=== PATIENT | female | born 1970 | race African-American/Black ===

== ENCOUNTER 2017-10-25 14:43 | Emergency (ER) | payer MEDICAID, MEDICARE ==
[~2017-10-25] VITALS: Ht 160 cm; Wt 136.1 kg
[~2017-10-25 14:43] MED LIST: CIPR500T4 PO; DIT5 PO; IBUP-974 PO; IRON65TA PO; MEDR10TA PO; VIC PO
[2017-10-25 14:46] VITALS: BP 149/96
--- NOTE | 2017-10-25 15:53 | NUR ---
PT TAKEN TO OVERFLOW 4.
--- NOTE | 2017-10-25 16:00 | NUR ---
46M bib daughter with c/o fevers, bodyaches, and 6/10 "pressure" constant frontal heachache x last night. No nachal rigidity or changes in vision. Pt denies any n/v or cough. Pt also report of nausea and frequency. Pt is aox4, with steady gait. RR are even and unlabored. NAD. Awaiting er md primary eval. Will continue to monitor.
--- NOTE | 2017-10-25 16:00 | NUR ---
46M bib daughter with c/o fevers, bodyaches, and 6/10 "pressure" constant frontal heachache x last night. No nachal rigidity or changes in vision. Pt also report of nausea and frequency. Pt is aox4, with steady gait. RR are even and unlabored. NAD. Awaiting er md primary eval. Will continue to monitor.
--- NOTE | 2017-10-25 16:04 | NUR ---
ER MD COLLAZO BY BEDSIDE
[2017-10-25] MEDS ORDERED: PANTOPRAZOLE 40 MG INJ VIAL IVP ONE (16:10)
[2017-10-25] MEDS ORDERED: KETOROLAC 30 MG/ML VIAL IVP ONE (16:10)
[2017-10-25] MEDS ORDERED: NACL 0.9% 1,000 ML IV ONE (16:10)
[2017-10-25] MEDS ORDERED: ONDANSETRON 4 MG/2 ML VIAL IVP ONE (16:20)
[2017-10-25 16:50] LABS: APPEARANCE,URINE CLEAR (CLEAR); BILIRUBIN,URINE NEGATIVE (NEGATIVE); BLOOD, URINE 1+ (NEGATIVE); COLOR,URINE YELLOW (YELLOW); LEUKOCYTE ESTERASE ,URINE 1+ (NEGATIVE); NITRITE, URINE NEGATIVE (NEGATIVE); PH,URINE 5.5 (5.0-9.0); UGLUCOSE NEGATIVE (NEGATIVE)
[2017-10-25 17:04] LABS: RBC,URINE 0-5 (RARE) /HPF (0-5); WBC,URINE 0-5 (RARE) /HPF (0-5)
[2017-10-25] MEDS ORDERED: METOCLOPRAMIDE 10 MG/2 ML INJ VIAL IVP ONE (17:40)
--- NOTE | 2017-10-25 18:00 | NUR ---
patient with no complaints. nad. will continue to monitor.
--- NOTE | 2017-10-25 18:44 | NUR ---
Patient discharged with v/s stable. Written and verbal after care instructions given and explained. Patient alert, oriented and verbalized understanding of instructions. Ambulatory with steady gait. All questions addressed prior to discharge. ID band removed. Patient advised to follow up with PMD. Rx of Bactrim and Zofran given. Patient educated on indication of medication including possible reaction and side effects. Opportunity to ask questions provided and answered.
[2017-10-25 18:45] VITALS: BP 141/88
== END 2017-10-25 18:44 | disposition home or self-care (01) ==
LOC: MED 14:43
DX: N39.0 Urinary tract infection, site not specified (principal); I10 Essential (primary) hypertension; Z88.1 Allergy status to other antibiotic agents
CPT/HCPCS: 36415; 81001; 81025; 87086; 87804; 96361; 96374; 96375; 99285; C9113; J1885; J2405; J2765; J7030

== ENCOUNTER 2017-12-09 16:26 | Emergency (ER) | payer MEDICARE ==
[~2017-12-09] VITALS: Ht 160 cm; Wt 127.0 kg
[2017-12-09 16:31] VITALS: BP 148/79
--- NOTE | 2017-12-09 16:48 | NUR ---
ASSUMED PATIENT CARE, CONCUR WITH TRIAGE. NURSING ASSESSMENT COMPLETED. SEEN AND EVALUATED BY PROVIDER, MSE COMPLETED.
--- NOTE | 2017-12-09 17:07 | NUR ---
URINE SPECIMEN COLLECTED AND SENT TO LAB.
[2017-12-09 17:28] LABS: APPEARANCE,URINE CLEAR (CLEAR); BILIRUBIN,URINE NEGATIVE (NEGATIVE); BLOOD, URINE NEGATIVE (NEGATIVE); COLOR,URINE YELLOW (YELLOW); LEUKOCYTE ESTERASE ,URINE NEGATIVE (NEGATIVE); NITRITE, URINE NEGATIVE (NEGATIVE); UGLUCOSE 3+ (NEGATIVE)
[2017-12-09 17:31] LABS: RBC,URINE 0-5 (RARE) /HPF (0-5); WBC,URINE 0-5 (RARE) /HPF (0-5)
[2017-12-09 18:30] VITALS: BP 122/77
--- NOTE | 2017-12-09 18:30 | NUR ---
MD AT BEDSIDE, UPDATING PATIENT.
--- NOTE | 2017-12-09 18:49 | NUR ---
DISPO AND MEDICAL DECISION MAKING, DC HOME WITH INSTRUCTIONS AND PRESCRIPTIONS, UNDERSTOOD BY PATIENT WELL, VSWNL, NO DISTRESS.
== END 2017-12-09 18:49 | disposition home or self-care (01) ==
LOC: MED 16:26
DX: B37.3 Candidiasis of vulva and vagina (principal); I10 Essential (primary) hypertension; Z88.1 Allergy status to other antibiotic agents
CPT/HCPCS: 81001; 99283

== ENCOUNTER 2018-01-01 08:42 | Emergency (ER) | payer MEDICARE ==
[~2018-01-01] VITALS: Ht 160 cm; Wt 126.1 kg
[2018-01-01 08:47] VITALS: BP 149/83
--- NOTE | 2018-01-01 08:55 | NUR ---
UA specimen collected. Pt sent to lobby to wait for a bed.
--- NOTE | 2018-01-01 10:02 | NUR ---
Pt taken to bed 10.
--- NOTE | 2018-01-01 10:03 | NUR ---
47/F BIB DAUGHTER C/O urge incontinence x1 week; sent from urgent care for eval of UTI s/sx and BS of 547. hx ovarian cyst. DENIES N/V/D; SKIN IS PINK/WARM/DRY; AAOX4 WITH EVEN AND STEADY GAIT; LUNGS CLEAR BL. PATIENT STATES PAIN OF 6/10 AT THIS TIME. PATIENT POSITIONED FOR COMFORT; HOB ELEVATED; BEDRAILS UP X2; BED DOWN. ER MD MADE AWARE OF PT STATUS.
[2018-01-01] MEDS ORDERED: NACL 0.9% 1,000 ML IV ONE (10:05)
--- NOTE | 2018-01-01 11:18 | NUR ---
Patient being reevaluated by DR GIBBS at bedside
[2018-01-01] MEDS ORDERED: INSULIN REGULAR, HUMAN 100 UNIT/ML VIAL IV ONE (11:20)
[2018-01-01 12:08] VITALS: BP 132/79
--- NOTE | 2018-01-01 12:09 | NUR ---
Patient discharged with BP 132/79; DENIES YEE OR DIZINESS AT THIS TIME. Written and verbal after care instructions given and explained. Patient alert, oriented and verbalized understanding of instructions. Ambulatory with steady gait. All questions addressed prior to discharge. ID band removed. Patient advised to follow up with PMD. Rx of MOTRIN & ANUSOL given. Patient educated on indication of medication including possible reaction and side effects. Opportunity to ask questions provided and answered.
== END 2018-01-01 12:09 | disposition home or self-care (01) ==
LOC: MED 08:42
DX: K64.9 Unspecified hemorrhoids (principal); E11.9 Type 2 diabetes mellitus without complications; Z88.1 Allergy status to other antibiotic agents; I10 Essential (primary) hypertension; F12.10 Cannabis abuse, uncomplicated
CPT/HCPCS: 82948; 96361; 96374; 99284; J1815; J7030; 81002; 81025

== ENCOUNTER 2018-10-10 22:37 | Emergency (ER) | payer MEDICARE ==
[~2018-10-10] VITALS: Ht 160 cm; Wt 117.5 kg
[2018-10-10 22:40] VITALS: BP 175/89
--- NOTE | 2018-10-10 22:49 | NUR ---
Pt MARCO flores. Pt presents to ED with ALOC after ingesting Marijuana Cake at home at 20:00. Pt states SOB 2 hrs after. Pt is alert to name, place, and event. Slurring words. Calm and cooperative. Eyes PERRLA. No sob or dyspnea upon ED arrival. Lungs clear bilat throughout. VSS. ER MD aware. continue to monitor.
--- NOTE | 2018-10-10 22:49 | NUR ---
PT TAKEN TO BED 3
[2018-10-10] MEDS ORDERED: NACL 0.9% 1,000 ML IV ONE (22:50)
[2018-10-10 23:24] LABS: BASOPHILS % (AUTO) 0.2 % (0.0-2.0); EOSINOPHILS % (AUTO) 0.2 % (0.0-4.0); HEMATOCRIT 42.7 % (36-48); HEMOGLOBIN 14.2 g/dL (12.0-16.0); LYMPHOCYTES # (AUTO) 1.8 K/uL (2.5-16.5); LYMPHOCYTES % (AUTO) 30.3 % (20.5-51.1); MEAN CORPUSCULAR HEMOGLOBIN 28 pg (27-31); MEAN CORPUSCULAR HGB CONC 33 g/dL (33-37); MEAN CORPUSCULAR VOLUME 82.8 fL (80-94); MONOCYTES # (AUTO) 0.5 K/uL (0.8-1.0); MONOCYTES % (AUTO) 7.5 % (1.7-9.3); NEUTROPHILS # (AUTO) 3.7 K/uL (1.8-7.7); NEUTROPHILS % (AUTO) 61.8 % (42.2-75.2); PLATELET COUNT (AUTO) 252 K/uL (140-450); RED BLOOD CELL COUNT(AUTO) 5.16 MIL/uL (4.20-5.40); RED CELL DISTRIBUTION WIDTH 12.9 % (11.6-13.7)
[2018-10-10 23:36] LABS: BARBITURATE, URINE NEG. ng/ml (NEG <=200); BENZODIAZEPINE, URINE NEG. ng/mL (NEG <=200); CANNABINOID, URINE POS. ng/mL (NEG <=50); COCAINE, URINE NEG. ng/mL (NEG <=300); OPIATE, URINE NEG. ng/mL (NEG <=2000); PHENCYCLIDINE SCREEN,URINE NEG. ng/mL (NEG <=25)
[2018-10-10 23:44] LABS: ALBUMIN 3.8 g/dL (3.4-5.0); ANION GAP 11.5 (8-16); ASPARTATE AMINOTRANSFERASE 23 U/L (15-37); CARBON DIOXIDE 31.8 mmol/L (21-32); CHLORIDE 94 mmol/L (98-107); CREATININE 1.1 mg/dL (0.6-1.3); GFR ARICAN-AMERICAN 68 mL/min (>90); POTASSIUM 4.3 mmol/L (3.5-5.1); SODIUM SERUM 133 mmol/L (136-145); TOTAL BILIRUBIN 0.4 mg/dL (0.0-1.0)
--- NOTE | 2018-10-10 23:48 | NUR ---
BEDPAN PROVIDED/ASSISTED ONTO BEDPAN, PER PT REQUEST.
--- NOTE | 2018-10-10 23:56 | NUR ---
ASSISTED PT OFF OF BEDPAN, PT RESTING COMFORTABLY.
[2018-10-10 23:57] LABS: SALICYLATE < 2.8 mg/dL (2.8-20.0)
[2018-10-10 23:58] LABS: ACETAMINOPHEN < 0.5 ug/ml (10-30); UREA NITROGEN, BLOOD 11 mg/dL (7-18)
[2018-10-11] LABS: GLUCOSE 513 mg/dL (74-106)
[2018-10-11] MEDS ORDERED: INSULIN REGULAR, HUMAN 100 UNIT/ML VIAL IVP ONE (00:10)
[2018-10-11 01:58] VITALS: BP 124/86
--- NOTE | 2018-10-11 01:58 | NUR ---
Patient discharged with v/s stable. Written and verbal after care instructions given and explained. Patient alert, oriented and verbalized understanding of instructions. Ambulatory with steady gait. All questions addressed prior to discharge. ID band removed. Patient advised to follow up with PMD. Rx of Metformin given. Patient educated on indication of medication including possible reaction and side effects. Opportunity to ask questions provided and answered.
== END 2018-10-11 01:58 | disposition home or self-care (01) ==
LOC: MED 22:37
DX: E11.9 Type 2 diabetes mellitus without complications (principal); F19.10 Other psychoactive substance abuse, uncomplicated; F12.10 Cannabis abuse, uncomplicated; I10 Essential (primary) hypertension; Z88.8 Allergy status to other drugs, medicaments and biological substances; Z79.899 Other long term (current) drug therapy
CPT/HCPCS: 36415; 80053; 80305; 81002; 81025; 82948; 85025; 93005; 96361; 96374; 99284; G0480; G0482; J1815; J7030

== ENCOUNTER 2018-10-26 03:39 | Emergency (ER) | payer BC, MEDICARE ==
[~2018-10-26] VITALS: Ht 165.1 cm; Wt 111.1 kg
[2018-10-26 03:44] VITALS: BP 121/67
[2018-10-26] MEDS ORDERED: METF500T PO (03:48)
[2018-10-26] MEDS ORDERED: NACL 0.9% 1,000 ML IV SCH (03:57)
[2018-10-26] MEDS ORDERED: ONDANSETRON 4 MG/2 ML VIAL IVP ONE (04:00)
[2018-10-26] MEDS ORDERED: MORPHINE SULFATE 4 MG/ML SYR IVP ONE ×2 (04:00→06:05)
[2018-10-26 05:09] LABS: APPEARANCE,URINE CLEAR (CLEAR); BILIRUBIN,URINE NEGATIVE (NEGATIVE); BLOOD, URINE NEGATIVE (NEGATIVE); COLOR,URINE YELLOW (YELLOW); LEUKOCYTE ESTERASE ,URINE TRACE (NEGATIVE); NITRITE, URINE NEGATIVE (NEGATIVE); UGLUCOSE 3+ (NEGATIVE)
[2018-10-26 05:33] LABS: RBC,URINE 0-5 (RARE) /HPF (0-5); YEAST,URINE Few /HPF (None Seen)
[2018-10-26 06:46] LABS: BASOPHILS % (AUTO) 0.3 % (0.0-2.0); HEMATOCRIT 42.2 % (36-48); HEMOGLOBIN 13.9 g/dL (12.0-16.0); LYMPHOCYTES # (AUTO) 0.9 K/uL (2.5-16.5); LYMPHOCYTES % (AUTO) 8.1 % (20.5-51.1); MEAN CORPUSCULAR HEMOGLOBIN 27 pg (27-31); MEAN CORPUSCULAR HGB CONC 33 g/dL (33-37); MEAN CORPUSCULAR VOLUME 83.3 fL (80-94); MONOCYTES # (AUTO) 0.8 K/uL (0.8-1.0); MONOCYTES % (AUTO) 6.7 % (1.7-9.3); NEUTROPHILS # (AUTO) 9.8 K/uL (1.8-7.7); NEUTROPHILS % (AUTO) 84.9 % (42.2-75.2); PLATELET COUNT (AUTO) 246 K/uL (140-450); RED BLOOD CELL COUNT(AUTO) 5.07 MIL/uL (4.20-5.40); RED CELL DISTRIBUTION WIDTH 13.1 % (11.6-13.7); WHITE BLOOD COUNT (AUTO) 11.6 K/uL (4.8-10.8)
[2018-10-26 07:09] LABS: ALBUMIN 3.4 g/dL (3.4-5.0); ANION GAP 12.2 (8-16); CARBON DIOXIDE 28.8 mmol/L (21-32); CREATININE 0.8 mg/dL (0.6-1.3); TOTAL BILIRUBIN 0.6 mg/dL (0.0-1.0)
[2018-10-26] MEDS ORDERED: INSULIN REGULAR, HUMAN 100 UNIT/ML VIAL IVP ONE (07:50)
[2018-10-26] MEDS ORDERED: MORPHINE SULFATE 4 MG/ML SYR IM ONE (08:55)
[2018-10-26] MEDS ORDERED: LORazepam 2 MG/ML VIAL IM/IVP ONE (08:55)
[2018-10-26] MEDS ORDERED: MORPHINE SULFATE 2 MG/ML SYR ONE (09:08)
[2018-10-26 09:34] VITALS: BP 113/65
== END 2018-10-26 09:34 | disposition home or self-care (01) ==
LOC: MED 03:39
DX: R10.32 Left lower quadrant pain (principal); E11.65 Type 2 diabetes mellitus with hyperglycemia; I10 Essential (primary) hypertension; Z79.84 Long term (current) use of oral hypoglycemic drugs; Z88.8 Allergy status to other drugs, medicaments and biological substances; Z79.899 Other long term (current) drug therapy
CPT/HCPCS: 36415; 74176; 80053; 81001; 81025; 82948; 83690; 85025; 87086; 96361; 96372; 96374; 96375; 99284; J1815; J2060; J2270; J2405; J7030; 96376

== ENCOUNTER 2018-11-05 04:55 | Emergency (ER) | payer BC ==
[~2018-11-05] VITALS: Ht 160 cm; Wt 108.9 kg
[~2018-11-05 04:55] MED LIST changes: -CIPR500T4 PO; -DIT5 PO; -IRON65TA PO; -MEDR10TA PO; +METF500T PO; -VIC PO
[2018-11-05 05:00] VITALS: BP 163/78
--- NOTE | 2018-11-05 05:17 | NUR ---
PT TO ER BED 3
--- NOTE | 2018-11-05 05:30 | NUR ---
PT BIB SELF C/O 05/17 LEFT FLANK PAIN THAT RADIATES DOWN HER LEFT LEG X1 WEEK; DENIES FALLS OR TRAUMA. +VOMITING X2 DAYS. PT STATES SHE HAS BEEN INCONTINENT X1 WEEK AND IS NOW USING ADULT DIAPERS; +DYSURIA, +ITCHING. DENIES SOB, CP, LOC. AAOX4. PT IN GOWN IN BED; BED IN LOWER LOCKED POISTION; BEDRAILS UP X2. ER MD MADE AWARE OF PT STATUS. WILL CONTINUE TO MONITOR. PMH: HTN, DM RX: HYDROCLORATHIZIDE
--- NOTE | 2018-11-05 05:58 | NUR ---
DR. SOTO AT BEDSIDE FOR EVALUATION.
[2018-11-05] MEDS ORDERED: ONDANSETRON 4 MG/2 ML VIAL IVP ONE ×2 (06:00→07:55)
[2018-11-05] MEDS ORDERED: KETOROLAC 30 MG/ML VIAL IVP ONE (06:00)
[2018-11-05 06:15] LABS: BASOPHILS % (AUTO) 0.3 % (0.0-2.0); EOSINOPHILS % (AUTO) 0.2 % (0.0-4.0); HEMATOCRIT 39.4 % (36-48); HEMOGLOBIN 12.7 g/dL (12.0-16.0); LYMPHOCYTES # (AUTO) 2.2 K/uL (2.5-16.5); LYMPHOCYTES % (AUTO) 19.4 % (20.5-51.1); MEAN CORPUSCULAR HEMOGLOBIN 27 pg (27-31); MEAN CORPUSCULAR HGB CONC 32 g/dL (33-37); MEAN CORPUSCULAR VOLUME 84.2 fL (80-94); MONOCYTES # (AUTO) 0.7 K/uL (0.8-1.0); MONOCYTES % (AUTO) 6.4 % (1.7-9.3); NEUTROPHILS # (AUTO) 8.2 K/uL (1.8-7.7); NEUTROPHILS % (AUTO) 73.7 % (42.2-75.2); PLATELET COUNT (AUTO) 375 K/uL (140-450); RED BLOOD CELL COUNT(AUTO) 4.68 MIL/uL (4.20-5.40); RED CELL DISTRIBUTION WIDTH 12.7 % (11.6-13.7); WHITE BLOOD COUNT (AUTO) 11.1 K/uL (4.8-10.8)
--- NOTE | 2018-11-05 06:27 | NUR ---
PT TAKEN TO CT VIA WHEELCHAIR BY TECH.
[2018-11-05 06:33] LABS: ALBUMIN 3.2 g/dL (3.4-5.0); ANION GAP 13.7 (8-16); CARBON DIOXIDE 29.5 mmol/L (21-32); POTASSIUM 4.2 mmol/L (3.5-5.1); TOTAL BILIRUBIN 0.4 mg/dL (0.0-1.0)
[2018-11-05] MEDS ORDERED: INSULIN REGULAR, HUMAN 100 UNIT/ML VIAL IVP ONE (06:40)
--- NOTE | 2018-11-05 06:46 | NUR ---
PT BACK FROM CT, PT IN BED. BED IN LOWER LOCKED POSITION, BEDRAILS UP X2.
--- NOTE | 2018-11-05 07:15 | NUR ---
Pt report given to Bandar MERRITT. Transfer of care at this time.
--- NOTE | 2018-11-05 07:15 | NUR ---
RECEIVED REPORT FROM ROJELIO MERRITT. R HAND IV INSERTION.
--- NOTE | 2018-11-05 07:23 | NUR ---
us at bedside.
[2018-11-05] MEDS ORDERED: INSULIN REGULAR, HUMAN 100 UNIT/ML VIAL SUBQ ONE ×2 (07:40→09:10)
[2018-11-05] MEDS ORDERED: NACL 0.9% 1,000 ML IV ONE ×2 (07:40→09:10)
--- NOTE | 2018-11-05 07:49 | NUR ---
Patient being evaluated by DR FARNSWORTH at bedside.
[2018-11-05] MEDS ORDERED: MORPHINE SULFATE 4 MG/ML SYR IVP ONE (07:55)
--- NOTE | 2018-11-05 10:37 | NUR ---
Patient appears to be resting comfortably in bed. Vital Signs within normal limits. Respirations even and unlabored.WILL CONTINUE TO MONITOR.
[2018-11-05 11:27] VITALS: BP 125/81
--- NOTE | 2018-11-05 11:28 | NUR ---
Patient discharged with v/s stable. Written and verbal after care instructions given and explained. Patient alert, oriented and verbalized understanding of instructions. Ambulatory with steady gait. All questions addressed prior to discharge. ID band removed. Patient advised to follow up with PMD. Rx of colace/miralax given. Patient educated on indication of medication including possible reaction and side effects. Opportunity to ask questions provided and answered.
--- NOTE | 2018-11-05 11:28 | NUR ---
radiology/lab reports handed to pt
== END 2018-11-05 11:28 | disposition home or self-care (01) ==
LOC: MED 04:55
DX: K59.00 Constipation, unspecified (principal); K57.92 Diverticulitis of intestine, part unspecified, without perforation or abscess without bleeding; E11.9 Type 2 diabetes mellitus without complications; I10 Essential (primary) hypertension; Z79.84 Long term (current) use of oral hypoglycemic drugs; Z79.899 Other long term (current) drug therapy; Z88.8 Allergy status to other drugs, medicaments and biological substances
CPT/HCPCS: 36415; 74176; 76830; 80053; 81002; 81025; 82948; 85025; 93976; 96361; 96372; 96374; 96375; 96376; 99284; J1815; J1885; J2270; J2405; J7030; Q0092

== ENCOUNTER 2018-11-19 21:15 | Emergency (ER) | payer BC ==
[~2018-11-19] VITALS: Ht 160 cm; Wt 117.5 kg
[2018-11-19 21:31] VITALS: BP 125/77
--- NOTE | 2018-11-19 21:35 | NUR ---
TO LOBBY A/W BED, YOSEF CLIFTON NOTED
--- NOTE | 2018-11-19 21:49 | NUR ---
PT TO ER BED 8
--- NOTE | 2018-11-19 21:50 | NUR ---
PATIENT PRESENTS TO ER WITH C/O CELLULITIS TO THE ABDOMEN X 1 WEEK. PT STATES THAT SHE WAS IN ER AT [facility] AND A RN GAVE HER A SHOT OF INSULIN FOR HAVING A HIGH GLUCOSE READ. THE SITE HAS MINIMAL SWELLING, NO REDNESS. NOTED, PT HAS 2 OTHER SMALL BRUISING TYPE EATON ON HER ABDOMEN; PT IS A/O X 4. PATIENT STATES PAIN OF 0/10 AT THIS TIME; VSS; PATIENT POSITIONED FOR COMFORT; HOB ELEVATED; BEDRAILS UP X2; BED DOWN. ER MD MADE AWARE OF PT STATUS.
--- NOTE | 2018-11-19 22:45 | NUR ---
Patient being evaluated by physician at bedside.
[2018-11-19 23:06] VITALS: BP 139/80
--- NOTE | 2018-11-19 23:06 | NUR ---
Patient discharged with v/s stable. Written and verbal after care instructions given and explained. Patient alert, oriented and verbalized understanding of instructions. Ambulatory with steady gait. All questions addressed prior to discharge. ID band removed. Patient advised to follow up with PMD. Rx of KEFLEX AND BACTRIM given. Patient educated on indication of medication including possible reaction and side effects. Opportunity to ask questions provided and answered.
== END 2018-11-19 23:06 | disposition home or self-care (01) ==
LOC: MED 21:15
DX: L03.311 Cellulitis of abdominal wall (principal); Z98.890 Other specified postprocedural states; I10 Essential (primary) hypertension; Z79.1 Long term (current) use of non-steroidal anti-inflammatories (NSAID); Z79.84 Long term (current) use of oral hypoglycemic drugs; Z88.6 Allergy status to analgesic agent; Z91.018 Allergy to other foods
CPT/HCPCS: 99283

== ENCOUNTER 2019-08-01 21:12 | Emergency (ER) | payer BC ==
[~2019-08-01] VITALS: Ht 157.5 cm; Wt 110.2 kg
[2019-08-01 21:25] VITALS: BP 145/91
--- NOTE | 2019-08-01 21:30 | NUR ---
PROVIDED PT WITH HEAT PACK FOR PAIN RELIEF.
--- NOTE | 2019-08-01 21:35 | NUR ---
PT AMBULATES BACK TO LOBBY WITH STEADY GAIT. URINE CUP PROVIDED TO COLLECT SAMPLE.
--- NOTE | 2019-08-01 23:51 | NUR ---
PT AMBULATED TO BED 09.
--- NOTE | 2019-08-01 23:53 | NUR ---
PT REPORTS NO RELIEF IN PAIN FROM HEAT PACK.
--- NOTE | 2019-08-02 00:12 | NUR ---
SEEN AND EXAMINED BY CR AND WITH ORDERS AND CARRIED OUT.
[2019-08-02] MEDS ORDERED: SULFAMETH/TRIMETH DS 800/160MG 1 TAB PO ONE (00:15)
[2019-08-02] MEDS ORDERED: traMADol 50 MG TAB PO ONE (00:15)
--- NOTE | 2019-08-02 00:24 | NUR ---
48 Y/O F PRESENTS TO ED [place] C/O LOWER LEFT GROIN PAIN. 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 DENIES NVD, URINARY BURNING. PT REPORTS HX OF INFECTION TO HER OVARY. PT SELF MEDICATED WITH IBUPROFEN 1 HOUR INDUSTRIAL MACHINE SYSTEM TECHNICIAN. +NAUSEA. MILD TENDERNESS TO LT LOWER GROIN. WILL CONTINUE TO MONITOR.
--- NOTE | 2019-08-02 00:48 | NUR ---
Patient discharged with v/s stable. Written and verbal after care instructions given and explained. Patient alert, oriented and verbalized understanding of instructions. Ambulatory with steady gait. All questions addressed prior to discharge. ID band removed. Patient advised to follow up with PMD. Rx of bactrim, mineral oil, and lactulose given. Patient educated on indication of medication including possible reaction and side effects. Opportunity to ask questions provided and answered.
[2019-08-07] MEDS ORDERED: NITR100C7 PO (17:10)
[2019-08-07] MEDS ORDERED: LANTUS SUBQ (17:10)
[2019-08-07] MEDS ORDERED: BLOO1EAC9 MC (17:10)
[2019-08-07] MEDS ORDERED: METF500T PO (17:10)
[2019-08-07] MEDS ORDERED: GLUC-805 FS (17:10)
[2019-08-07] MEDS ORDERED: LACT10CA1 PO (17:10)
== END 2019-08-02 00:48 | disposition home or self-care (01) ==
LOC: MED 21:12
DX: N39.0 Urinary tract infection, site not specified (principal); I10 Essential (primary) hypertension; Z98.890 Other specified postprocedural states; Z79.899 Other long term (current) drug therapy; Z88.8 Allergy status to other drugs, medicaments and biological substances
CPT/HCPCS: 81002; 81025; 99283

== ENCOUNTER 2019-08-04 16:21 | Inpatient (IN) | payer BC ==
[~2019-08-04] VITALS: Ht 157.5 cm; Wt 108.9 kg
[2019-08-04 16:36] VITALS: BP 102/55
--- NOTE | 2019-08-04 16:41 | NUR ---
Patient ambulated to bed 11. RN evaluating patient at bedside.
[2019-08-04] MEDS ORDERED: NACL 0.9% 1,000 ML IV SCH (17:12)
[2019-08-04] MEDS ORDERED: METOCLOPRAMIDE 10 MG/2 ML INJ VIAL IVP ONE (17:15)
[2019-08-04] MEDS ORDERED: FAMOTIDINE 20 MG TAB PO ONE (17:30)
[2019-08-04] MEDS ORDERED: hydrOXYzine HCL 25 MG TAB PO ONE (17:30)
--- NOTE | 2019-08-04 17:35 | NUR ---
LAB AT BEDSIDE
--- NOTE | 2019-08-04 17:45 | NUR ---
48/F BIB FRIEND NAUSEA,LEFT LOWER ABDOMINAL PAIN X 3 DAYS. SEEN HERE ON SUNDAY SAME S/S. SHE STATED SHE ATE [facility] AND [facility]. SHE WAS HERE ON FOR SIDE PAIN. HER LAST BM WAS ON 08/03/2019. PMHX: DM, HTN, C SECTION, CARPAL TURNEL REPAIR, ABDOMINOPLASTY.
[2019-08-04 17:57] LABS: BASOPHILS % (AUTO) 0.3 % (0.0-2.0); HEMATOCRIT 41.6 % (36-48); HEMOGLOBIN 14.2 g/dL (12.0-16.0); LYMPHOCYTES # (AUTO) 1.2 K/uL (2.5-16.5); LYMPHOCYTES % (AUTO) 13.9 % (20.5-51.1); MEAN CORPUSCULAR HEMOGLOBIN 28 pg (27-31); MEAN CORPUSCULAR HGB CONC 34 g/dL (33-37); MONOCYTES # (AUTO) 0.6 K/uL (0.8-1.0); MONOCYTES % (AUTO) 6.5 % (1.7-9.3); NEUTROPHILS # (AUTO) 6.9 K/uL (1.8-7.7); NEUTROPHILS % (AUTO) 79.3 % (42.2-75.2); PLATELET COUNT (AUTO) 271 K/uL (140-450); RED BLOOD CELL COUNT(AUTO) 5.01 MIL/uL (4.20-5.40); RED CELL DISTRIBUTION WIDTH 13.4 % (11.6-13.7); WHITE BLOOD COUNT (AUTO) 8.7 K/uL (4.8-10.8)
[2019-08-04 18:00] LABS: BILIRUBIN,URINE 1+ (NEGATIVE); BLOOD, URINE TRACE-I (NEGATIVE); COLOR,URINE YELLOW (YELLOW); LEUKOCYTE ESTERASE ,URINE TRACE (NEGATIVE); NITRITE, URINE NEGATIVE (NEGATIVE); PH,URINE 5.5 (5.0-9.0); UGLUCOSE 3+ (NEGATIVE)
[2019-08-04 18:01] LABS: APPEARANCE,URINE HAZY (CLEAR)
[2019-08-04 18:04] LABS: MAGNESIUM 1.3 mg/dL (1.8-2.4)
[2019-08-04 18:10] LABS: ALBUMIN 2.8 g/dL (3.4-5.0); ANION GAP 13.3 (8-16); CARBON DIOXIDE 28.9 mmol/L (21-32); CREATININE 0.9 mg/dL (0.6-1.3); POTASSIUM 4.2 mmol/L (3.5-5.1); TOTAL BILIRUBIN 0.4 mg/dL (0.0-1.0)
[2019-08-04 18:12] LABS: BARBITURATE, URINE NEG. ng/ml (NEG <=200); BENZODIAZEPINE, URINE NEG. ng/mL (NEG <=200); CANNABINOID, URINE NEG. ng/mL (NEG <=50); COCAINE, URINE NEG. ng/mL (NEG <=300); OPIATE, URINE NEG. ng/mL (NEG <=2000); PHENCYCLIDINE SCREEN,URINE NEG. ng/mL (NEG <=25)
[2019-08-04 18:13] LABS: RBC,URINE 0-5 /HPF (0-5); YEAST,URINE Rare /HPF (None Seen)
[2019-08-04 18:14] LABS: ACETONE, SERUM NEGATIVE (NEGATIVE)
[2019-08-04] MEDS ORDERED: INSULIN REGULAR, HUMAN 100 UNIT/ML VIAL IVP ONE (18:20)
[2019-08-04] MEDS ORDERED: FLUCONAZOLE 100 MG TAB PO ONE (18:20)
--- NOTE | 2019-08-04 18:46 | NUR ---
PT HEADING TO CT AT THIS TIME
[2019-08-04] MEDS ORDERED: ONDANSETRON 4 MG/2 ML VIAL IM/IVP PRN (19:05)
[2019-08-04] MEDS ORDERED: ACETAMINOPHEN 325 MG TAB PO PRN (19:05)
--- NOTE | 2019-08-04 19:30 | NUR ---
PT APPEARS TO BE IN MILD DISTRESS AT THIS TIME. VSS. PT BLOOD SUGAR RECHECKED. PT BS 316.
[2019-08-04 19:48] LABS: CHOL/HDL RATIO 4.4 (1-4.5); FREE T4 (FREE THYROXINE) 1.18 ng/dL (0.76-1.46); MAGNESIUM 1.3 mg/dL (1.8-2.4); PHOSPHORUS 3.3 mg/dL (2.5-4.9); THYROID STIMULATING HORMONE 0.97 uIU/mL (0.34-3.74)
--- NOTE | 2019-08-04 20:25 | NUR ---
PT LAYING IN BED, RR EVEN AND UNLABORED. VSS. REPORTS 10/10 LLQ PAIN. WILL ENDORSED TO FLUE BLOWER.
--- NOTE | 2019-08-04 20:30 | NUR ---
Patient will be admitted to care of DR WICK. Admited to TELE. Will go to room 105B. Belongings list completed. Report to CHEYENNE MERRITT.
[2019-08-04] MEDS ORDERED: DEXTROSE 50% 50 ML SYR IVP PRN (20:50)
[2019-08-04 20:55] VITALS: BP 137/83
--- NOTE | 2019-08-04 20:55 | NUR ---
Admitted from ED, with chief complaint of LEFT LOWER QUADRANT PAIN since Sunday. Pt is 48 y/o ,Female, Restless, moaning and groaning due to pain. Significant other at bedside. MD came to talk to the patient. Initial assessment done. Vital signs checked. Informed pt will check what the MD ordered for her pain. Pt verbalized understanding. Pt oriented to call light, bed, phone,television, bathroom, smoking policy, visiting hours, procedures, ID bracelet on. Belongings list checked. MRSA swab done.
[2019-08-04] MEDS ORDERED: MORPHINE SULFATE 4 MG/ML SYR IVP SCH (21:00)
[2019-08-04] MEDS ORDERED: MAG SULF 2000 MG/WATER PREMIX 100 ML IV SCH (21:15)
--- NOTE | 2019-08-04 21:16 | NUR ---
PT GIVEN SANDWICH AND CRACKERS PER REQUEST. BLOOD SUGAR CHECKED:262. WILL GIVE INSULIN PER SLIDING SCALE. PT GIVEN MORPHINE 4MG IVX1 ORDERED. TEACHINGS PROVIDED. PT GIVEN MAGNESIUM IV 2GMX1 FOR MG LEVEL OF 1.3. PT VERBALIZED UNDERSTANDING. PT ASKED FOR BEDSIDE COMMODE BUT NO AVAILABLE COMMODE RIGHT NOW. PT ASSISTED TO THE BATHROOM AND BACK TO BED. PT SAYING SHE HAS PAIN WHEN URINATING. INFORMED PT THAT SHE WILL GET ANTIBIOTIC FOR THAT. PT VERBALIZED UNDERSTANDING. PT LEFT SITTING ON THE EDGE OF THE BED EATING HER SANDWICH. CALL LIGHT W/IN REACH. BED ALARM TURNED ON FOR SAFETY.
[2019-08-04] MEDS: NACL 0.9% 1,000 ML IV SCH (21:22)
[2019-08-04] MEDS: BLOOD GLUCOSE MONITORING 1 DEV DEV FS SCH (21:28)
[2019-08-04] MEDS: INSULIN LANTUS 100 UNITS/ML 10 ML VIAL SUBQ SCH (21:35)
[2019-08-04] MEDS: INSULIN LISPRO SLIDING SCALE 100 UNITS/ML VIAL SUBQ PRN (21:36)
[2019-08-04] MEDS ORDERED: cefTRIAXone 1,000 MG VIAL ONE (21:50)
--- NOTE | 2019-08-04 23:05 | NUR ---
PT CALLED COMPLAINING OF PAIN. SEEN PT GETTING OUT OF BED TO THE COMMODE. PT SAYING SHE STILL HAS PAIN WHEN URINATING. ENCOURAGED PT TO RELAX AND DON'T BE STIFF SO THE URINE WILL FLOW SMOOTHLY. PT WERE ABLE TO URINATE BETTER. PT WENT BACK TO BED. VITAL SIGNS CHECKED AND BP ELEVATED. PT GIVEN W/ NORCO FOR PAIN. WILL REASSESS FOR RELIEF. CALL LIGHT W/IN REACH. BED ALARM TURNED ON.
[2019-08-04] MEDS: HYDROcodone/APAP 7.5/325 MG 1 TAB PO PRN (23:11)
[2019-08-05] VITALS: BP 151/83
--- NOTE | 2019-08-05 00:45 | NUR ---
SEEN PT SLEEPING COMFORTABLY. IVF INFUSING WELL. CALL LIGHT W/IN REACH.
--- NOTE | 2019-08-05 01:03 | NUR ---
PT CALLED AND WANTS TO BRUSH HER TEETH AND USE THE BEDSIDE COMMODE. PT ASSISTED TO THE COMMODE AND BRUSH HER TEETH WHILE IN THE COMMODE. PT ASKING FOR HER PAIN MEDICINE. ASSISTED BACK TO BED AND KEPT COMFORTABLE. INFORMED HER WILL GIVE IT IF IT'S TIME. CALL LIGHT W/IN REACH.
--- NOTE | 2019-08-05 02:04 | NUR ---
SEEN PT SLEEPING SOUNDLY. IVF INFUSING WELL.
[2019-08-05 04:25] VITALS: BP 111/62
--- NOTE | 2019-08-05 04:25 | NUR ---
PT CALLED ASKING SOMETHING FOR PAIN. SEEN PT AWAKE. VITAL SIGNS CHECKED. PT GIVEN MORPHINE IVP ORDERED. TEACHINGS GIVEN. PT REMINDED ABOUT BEING NOTHING BY MOUTH. PT VERBALIZED UNDERSTANDING.
[2019-08-05] MEDS: MORPHINE SULFATE 2 MG/ML SYR IVP PRN ×4 (04:26→16:53)
--- NOTE | 2019-08-05 05:25 | NUR ---
PT'S BED ALARMED. SEEN PT IN THE BEDSIDE COMMODE. THEN PT ASSISTED BACK TO THE COMMODE. CALL LIGHT WIN REACH. IVF INFUSING WELL.
[2019-08-05 06:14] LABS: ANION GAP 13.6 (8-16); CARBON DIOXIDE 27.7 mmol/L (21-32); CREATININE 0.7 mg/dL (0.6-1.3); POTASSIUM 4.3 mmol/L (3.5-5.1)
[2019-08-05 06:29] LABS: BASOPHILS % (AUTO) 0.3 % (0.0-2.0); EOSINOPHILS % (AUTO) 0.1 % (0.0-4.0); HEMATOCRIT 38.1 % (36-48); HEMOGLOBIN 13.1 g/dL (12.0-16.0); LYMPHOCYTES # (AUTO) 1.8 K/uL (2.5-16.5); LYMPHOCYTES % (AUTO) 19.6 % (20.5-51.1); MEAN CORPUSCULAR HEMOGLOBIN 28 pg (27-31); MEAN CORPUSCULAR HGB CONC 34 g/dL (33-37); MEAN CORPUSCULAR VOLUME 81.4 fL (80-94); MONOCYTES % (AUTO) 11.2 % (1.7-9.3); NEUTROPHILS # (AUTO) 6.4 K/uL (1.8-7.7); NEUTROPHILS % (AUTO) 68.8 % (42.2-75.2); PLATELET COUNT (AUTO) 296 K/uL (140-450); RED BLOOD CELL COUNT(AUTO) 4.69 MIL/uL (4.20-5.40); RED CELL DISTRIBUTION WIDTH 13.2 % (11.6-13.7); WHITE BLOOD COUNT (AUTO) 9.2 K/uL (4.8-10.8)
--- NOTE | 2019-08-05 06:30 | NUR ---
PT ASKING FOR PAIN MEDICINE AND INFORMED HER ITS NOT DUE YET. PT WANTS TO WALK AROUND INSTEAD BUT WANTS HER IV DISCONNECTED FOR A WHILE. PT GIVEN GOWN TO COVER HER BACK.
[2019-08-05] MEDS: NACL 0.9% 1,000 ML IV SCH ×2 (06:57→13:20)
[2019-08-05] MEDS: BLOOD GLUCOSE MONITORING 1 DEV DEV FS SCH ×4 (06:57→20:35)
--- NOTE | 2019-08-05 07:00 | NUR ---
PT IN BED. BLOOD SUGAR CHECKED:278. WILL COVER W/ INSULIN PER SLIDING SCALE. US TECH CAME BUT PT WANTS HER PAIN MEDICINE. WILL MEDICATE FOR PAIN ORDERED.
[2019-08-05] MEDS: INSULIN LISPRO SLIDING SCALE 100 UNITS/ML VIAL SUBQ PRN ×4 (07:06→20:37)
--- NOTE | 2019-08-05 07:10 | NUR ---
PT SLEEPING AT THIS TIME, APPEARS COMFORTABLE. CALL LIGHT AND PERSONAL ITEMS WITHIN EASY REACH, SAFETY MEASURES IN PLACE, REPORT ENDORSED TO MATILDE FELIPE Addendum: 08/05/19 at 1922 by Simón Oquendo RN TIME [id number]
[2019-08-05] MEDS ORDERED: MORPHINE SULFATE 4 MG/ML SYR IVP SCH (07:15)
--- NOTE | 2019-08-05 07:30 | NUR ---
REPORT GIVEN TO DAYSHIFT NURSE.
--- NOTE | 2019-08-05 07:30 | NUR ---
REPORT RECEIVED FROM NURSE QUINN PT SLEEPING AT THIS TIME, NO S/S OF ACUTE DISTRESS NOTED, CALL LIGHT AND PERSONAL ITEMS WITHIN EASY REACH, SAFETY MEASURES IN PLACE, WILL CONTINUE TO MONITOR.
--- NOTE | 2019-08-05 07:58 | NUR ---
PATIENT HAS BEEN SCREENED AND CATEGORIZED HIGH NUTRITION RISK. PATIENT WILL BE SEEN WITHIN 1-2 DAYS OF ADMISSION. 08/05/19-08/06/[address]
[2019-08-05 08:00] VITALS: BP 121/67
[2019-08-05] MEDS: metFORMIN 500 MG TAB PO SCH ×2 (08:06→16:53)
[2019-08-05] MEDS: LACTOBACILLUS RHAMNOSUS GG 1 EACH CAP PO SCH (09:18)
--- NOTE | 2019-08-05 10:30 | NUR ---
PT SLEEPING AT THIS TIME, ULTRASOUND COMPLETED, CALL LIGHT AND PERSONAL ITEMS WITHIN EASY REACH, SAFETY MEASURES IN PLACE, WILL CONTINUE TO MONITOR.
[2019-08-05 11:40] VITALS: BP 122/64
[2019-08-05] MEDS ORDERED: MAG SULF 2000 MG/WATER PREMIX 50 ML IV SCH (13:00)
--- NOTE | 2019-08-05 13:30 | NUR ---
PT SLEEPING AT THIS TIME, FAMILY AT BEDSIDE. NO S/S OF ACUTE DISTRESS NOTED, CALL LIGHT AND PERSONAL ITEMS WITHIN EASY REACH, SAFETY MEASURES IN PLACE, WILL CONTINUE TO MONITOR.
--- NOTE | 2019-08-05 14:53 | NUR ---
08/05/19 RD INITIAL ASSESSMENT COMPLETED PLEASE REFER TO NUTRITION ASSESSMENT UNDER CARE ACTIVITY FOR ESTIMATED NUTRITIONAL NEEDS. 1. CONTINUE NPO TOLERATED 2. IF/WHEN MEDICALLY STABLE TO BEGIN NUTRITION, CONSIDER ADVANCE DIET TOLERATED TO [facility] DIET. 3. NUTRITION EDUCATION ON GENERAL, HEALTHY EATING AND DIABETES WAS GIVEN 4. RD TO FOLLOW-UP 2-3 DAYS, HIGH RISK GABRIEL ELMORE RD
[2019-08-05 16:00] VITALS: BP 132/70
--- NOTE | 2019-08-05 17:00 | NUR ---
PT AWAKE A/O C/O PAIN, MEDICATED PER ORDER, ENCOURAGED DIVERSIONAL ACTIVITIES, FAMILY AT BEDSIDE,CALL LIGHT AND PERSONAL ITEMS WITHIN EASY REACH, SAFETY MEASURES IN PLACE, WILL CONTINUE TO MONITOR.
[2019-08-05] MEDS: HYDROcodone/APAP 7.5/325 MG 1 TAB PO PRN (17:43)
--- NOTE | 2019-08-05 19:15 | NUR ---
RECEIVED REPORT FROM AM NURSE, PT SLEEPING AT THIS TIME, NO S/S OF ACUTE DISTRESS NOTED, CALL LIGHT AND PERSONAL ITEMS WITHIN EASY REACH, SAFETY MEASURES IN PLACE, WILL CONTINUE TO MONITOR.
--- NOTE | 2019-08-05 19:16 | NUR ---
PT WITH IV ON THE LEFT AC G 20, W/ NS AT 110 ML/HR PATENT AND INFUSING WELL Addendum: 08/06/19 at 0116 by Maya Bansal RN AMEND TO R KATHLEEN
[2019-08-05 20:00] VITALS: BP 136/79
[2019-08-05] MEDS: INSULIN LANTUS 100 UNITS/ML 10 ML VIAL SUBQ SCH (20:47)
--- NOTE | 2019-08-05 21:00 | NUR ---
PT W/ FAMILY , TALKED TPO DR. KNIGHT REGARDING SOME OF THEIR QUERIES
--- NOTE | 2019-08-05 23:41 | NUR ---
PT TRYING TO GET SLEEP AFTER PAIN MED ADMINISTRATION, PLACED PT IN COMFORTABLE POSITION
[2019-08-06] VITALS: BP 136/79
[2019-08-06] MEDS: NACL 0.9% 1,000 ML IV SCH ×2 (00:52→06:22)
[2019-08-06] MEDS: MORPHINE SULFATE 2 MG/ML SYR IVP PRN ×3 (01:11→10:18)
--- NOTE | 2019-08-06 01:11 | NUR ---
PT C/O OF LEFT FLANK PAIN 07/17 ; MEDICATED PATIENT ORDERED
[2019-08-06] MEDS: HYDROcodone/APAP 7.5/325 MG 1 TAB PO PRN (03:04)
--- NOTE | 2019-08-06 03:04 | NUR ---
PT AGAIN STILL NOT RELIEVED BY MORPHINE, WILL GIVE NORCO PT STATES THAT FLANK PAIN IS A 6/10 RIGHT NOW
--- NOTE | 2019-08-06 03:34 | NUR ---
PT SCREAMING IN PAIN; ALREADY INFORMED DR. KNIGHT. INFORMED HIM AND SAID TO WAIT FOR THE MEDICATION TO TAKE EFFECT.
[2019-08-06] MEDS: BLOOD GLUCOSE MONITORING 1 DEV DEV FS SCH ×2 (05:50→11:30)
[2019-08-06] MEDS: INSULIN LISPRO SLIDING SCALE 100 UNITS/ML VIAL SUBQ PRN (05:55)
--- NOTE | 2019-08-06 07:15 | NUR ---
RECEIVED REPORT FROM CENTRAL SUPPLY TECHNICIAN SUPERVISOR NURSE DESTINEE FOR CONTINUITY OF CARE. PT IN STABLE CONDITION. RESPIRATIONS EVEN AND UNLABORED, ROOM AIR. IV INTACT AND PATENT. SAFETY MEASURES IN PLACE. BED IN LOW POSITION. CALL LIGHT AT BEDSIDE. WILL CONTINUE TO MONITOR.
[2019-08-06 07:44] LABS: BASOPHILS % (AUTO) 0.2 % (0.0-2.0); EOSINOPHILS % (AUTO) 0.2 % (0.0-4.0); HEMOGLOBIN 11.9 g/dL (12.0-16.0); LYMPHOCYTES # (AUTO) 1.7 K/uL (2.5-16.5); LYMPHOCYTES % (AUTO) 16.7 % (20.5-51.1); MEAN CORPUSCULAR HEMOGLOBIN 28 pg (27-31); MEAN CORPUSCULAR HGB CONC 34 g/dL (33-37); MEAN CORPUSCULAR VOLUME 81.4 fL (80-94); MONOCYTES # (AUTO) 0.9 K/uL (0.8-1.0); NEUTROPHILS # (AUTO) 7.3 K/uL (1.8-7.7); NEUTROPHILS % (AUTO) 73.9 % (42.2-75.2); PLATELET COUNT (AUTO) 291 K/uL (140-450); RED CELL DISTRIBUTION WIDTH 12.8 % (11.6-13.7); WHITE BLOOD COUNT (AUTO) 9.9 K/uL (4.8-10.8)
[2019-08-06 08:00] VITALS: BP 112/75
[2019-08-06 08:25] LABS: MAGNESIUM 1.3 mg/dL (1.8-2.4); PHOSPHORUS 3.6 mg/dL (2.5-4.9)
--- NOTE | 2019-08-06 09:45 | NUR ---
GAVE ORDERED DUE MEDICATIONS AT THIS TIME. PT TOLERATED WELL. WILL CONTINUE TO MONITOR.
[2019-08-06] MEDS: LACTOBACILLUS RHAMNOSUS GG 1 EACH CAP PO SCH (09:56)
[2019-08-06] MEDS: metFORMIN 500 MG TAB PO SCH (09:56)
[2019-08-06 10:05] LABS: ANION GAP 15.8 (8-16); POTASSIUM 3.8 mmol/L (3.5-5.1)
[2019-08-06 10:06] LABS: CREATININE 0.7 mg/dL (0.6-1.3)
[2019-08-06] MEDS ORDERED: METF500T PO (10:27)
[2019-08-06] MEDS ORDERED: LACT10CA1 PO (10:30)
[2019-08-06] MEDS ORDERED: NITR100C7 PO (10:30)
[2019-08-06] MEDS ORDERED: GLUC-805 FS (10:34)
[2019-08-06] MEDS ORDERED: BLOO1EAC9 MC (10:34)
[2019-08-06] MEDS ORDERED: LANTUS SUBQ (10:34)
[2019-08-06] MEDS ORDERED: INSULIN LANTUS 100 UNITS/ML 10 ML VIAL SUBQ SCH ×2 (11:00→21:00)
[2019-08-06] MEDS ORDERED: HYDR-5092 PO (11:00)
[2019-08-06] MEDS ORDERED: MAG SULF 2000 MG/WATER PREMIX 100 ML IV SCH (11:00)
--- NOTE | 2019-08-06 11:33 | NUR ---
DR. PERSON AT BEDSIDE EXPLAINING DISCHARGE PLANNING WITH PT. PT VERBALIZED UNDERSTANDING. WILL CONTINUE TO MONITOR.
[2019-08-06] MEDS ORDERED: KETOROLAC 30 MG/ML VIAL IM SCH (12:00)
--- NOTE | 2019-08-06 14:22 | NUR ---
PT LYING IN BED SLEEPING AT THIS TIME. BED IN LOW POSITION. CALL LIGHT AT BEDSIDE. WILL CONTINUE TO MONITOR.
--- NOTE | 2019-08-06 15:45 | NUR ---
ATTEMPTED TO DISCHARGE PT. PT WILL NOT STAY AWAKE TO LISTEN TO INSTRUCTIONS. PT STATED WAITING ON FAMILY TO ARRIVE. PT IN STABLE CONDITION. BED IN LOW POSITION. CALL LIGHT AT BEDSIDE. WILL CONTINUE TO MONITOR.
--- NOTE | 2019-08-06 17:15 | NUR ---
GAVE DISCHARGE INSTRUCTIONS AND TO COTTON SAMPLER PRESCRIPTIONS AT HOME PHARM[facility]Y, PT VERBALIZED UNDERSTANDING. REMOVED IV, LUMEN INTACT, REMOVED ID BAND. PT REFUSED WHEELCHAIR. ESCORTED PT TO LOBBY IN STABLE CONDITION WHERE FAMILY WAS WAITING WITH VEHICLE.
--- NOTE | 2019-08-06 21:19 | NUR ---
GAVE DISCHARGE INSTRUCTIONS AND TO PRODUCT MANAGENT INTERN PRESCRIPTIONS AT HOME PHARM[facility], PT VERBALIZED UNDERSTANDING. REMOVED IV, LUMEN INTACT, REMOVED ID BAND. PT REFUSED WHEELCHAIR. ESCORTED PT TO LOBBY IN STABLE CONDITION WHERE FAMILY WAS WAITING WITH VEHICLE. Addendum: 08/06/19 at 2122 by Ruthie Brown RN WRONG DOCUMENTATION TIME.
[2019-08-07] MEDS ORDERED: METF500T PO (17:10)
[2019-08-07] MEDS ORDERED: NITR100C7 PO (17:10)
[2019-08-07] MEDS ORDERED: BLOO1EAC9 MC (17:10)
[2019-08-07] MEDS ORDERED: GLUC-805 FS (17:10)
[2019-08-07] MEDS ORDERED: LANTUS SUBQ (17:10)
[2019-08-07] MEDS ORDERED: LACT10CA1 PO (17:10)
== END 2019-08-06 17:15 | disposition home or self-care (01) | DRG 532 ==
LOC: MED 16:21 → MTU 19:05
PROVIDERS: ADMIT General Practice; ATTEND General Practice
DX: N83.202 Unspecified ovarian cyst, left side (principal); E11.00 Type 2 diabetes mellitus with hyperosmolarity without nonketotic hyperglycemic-hyperosmolar coma (NKHHC); E43 Unspecified severe protein-calorie malnutrition; E83.42 Hypomagnesemia; Z68.41 Body mass index [BMI] 40.0-44.9, adult; F15.10 Other stimulant abuse, uncomplicated; B35.6 Tinea cruris; E11.65 Type 2 diabetes mellitus with hyperglycemia; N39.0 Urinary tract infection, site not specified; I10 Essential (primary) hypertension; E66.9 Obesity, unspecified; B37.9 Candidiasis, unspecified; D25.9 Leiomyoma of uterus, unspecified; Z72.89 Other problems related to lifestyle; Z88.8 Allergy status to other drugs, medicaments and biological substances; Z90.49 Acquired absence of other specified parts of digestive tract
CPT/HCPCS: 36415; 71045; 76856; 80048; 80053; 80305; 81001; 81025; 82009; 82150; 82550; 82948; 83036; 83605; 83690; 83735; 83880; 84100; 84439; 84443; 85025; 85610; 85730; 87081; 87086; 93005; 96361; 96374; 96375; 99285; G0482; J0696; J1644; J1815; J1885; J2270; J2765; J3475; J7030; J7060; Q0092

== ENCOUNTER 2021-10-06 17:57 | Emergency (ER) | payer BC, OTHER ==
[~2021-10-06] VITALS: Ht 160 cm; Wt 105.2 kg
[~2021-10-06 17:57] MED LIST changes: +BLOO1EAC9 MC; +GLUC-805 FS; +HYDR-5092 PO; +LACT10CA1 PO; +LANTUS SUBQ; +NITR100C7 PO
[2021-10-06 18:30] VITALS: BP 152/87
[2021-10-06] MEDS ORDERED: ED NON STOCK ORDER 1 EA MISC IV ONE (19:50)
[2021-10-06] MEDS ORDERED: NACL 0.9% IV SCH (21:30)
[2021-10-06] MEDS ORDERED: [UNRECOGNIZED DRUG - OTHER] IV SCH (21:30)
[2021-10-06] MEDS ORDERED: ROBAC PO (22:26)
[2021-10-06] MEDS ORDERED: AZIT250T4 PO (22:26)
[2021-10-06] MEDS ORDERED: ALBU0.0912 IH (22:26)
--- NOTE | 2021-10-07 00:07 | NUR ---
PT TAKEN TO BED 10B
[2021-10-07] MEDS ORDERED: ALBUTEROL SULFATE/IPRATROPIU 3 ML SOL IH ONE (02:00)
--- NOTE | 2021-10-07 03:02 | NUR ---
d/c with VSS. d/c education given. opportunity to ask questiosn given and answered. rx of azithromycin, albuterol, codeine given. IV site removed, bleeding controlled with sterile gauze and reinforced with tape.
[2021-10-07 03:04] VITALS: BP 139/74
== END 2021-10-07 03:02 | disposition home or self-care (01) ==
LOC: MED 17:57
DX: U07.1 COVID-19 (principal); J12.89 Other viral pneumonia; E11.9 Type 2 diabetes mellitus without complications; I10 Essential (primary) hypertension; Z79.899 Other long term (current) drug therapy; Z79.4 Long term (current) use of insulin; Z88.8 Allergy status to other drugs, medicaments and biological substances
CPT/HCPCS: 71045; 94640; 96365; 99284